=== PATIENT | female | born 1970 | race Two or more races ===

== ENCOUNTER 2019-04-13 08:50 | Outpatient (CLI) | payer OTHER ==
[2019-04-13] MEDS ORDERED: ALBU8.5H8 INH (09:26)
[2019-04-13] MEDS ORDERED: METF500T17 PO (09:26)
[2019-04-13 10:07] LABS: ALBUMIN 3.9 g/dL (3.4-5.0); ANION GAP 7 mmol/L (5-15); CALCIUM 9.1 mg/dL (8.5-10.1); CHLORIDE 110 mmol/L (98-107)
[2019-04-13 10:11] LABS: ALANINE AMINOTRANSFERASE 39 U/L (12-78); ALKALINE PHOSPHATASE 112 U/L (45-117); BILIRUBIN,TOTAL 0.6 mg/dL (0.2-1.0); CREATININE 0.86 mg/dL (0.55-1.02); TOTAL PROTEIN 8.3 g/dL (6.4-8.2)
== END 2019-04-13 23:59 | disposition home or self-care (01) ==
LOC: STAR 08:50
PROVIDERS: ATTEND Obstetrics & Gynecology Female Pelvic Medicine and Reconstructive Surgery
DX: Z01.818 Encounter for other preprocedural examination (principal); D21.9 Benign neoplasm of connective and other soft tissue, unspecified; N85.2 Hypertrophy of uterus; Z87.891 Personal history of nicotine dependence; Z91.018 Allergy to other foods; Z91.048 Other nonmedicinal substance allergy status
CPT/HCPCS: 36415; 80053; 93005

== ENCOUNTER 2019-05-07 10:40 | Day surgery (SDC) | payer OTHER ==
[~2019-05-07] VITALS: Ht 160 cm; Wt 105.9 kg
[~2019-05-07 10:40] MED LIST: ALBU8.5H8 INH; METF500T17 PO
[2019-05-07] MEDS ORDERED: MIDAZOLAM 1 MG/ML, 2ML ONE (10:45)
[2019-05-07] MEDS ORDERED: FENTANYL PF 100 MCG/2ML ONE ×2 (10:46→15:42)
[2019-05-07] MEDS ORDERED: ONDANSETRON 2MG/ML, 2ML ONE (10:46)
[2019-05-07] MEDS ORDERED: DEXAMETHASONE 4 MG/ML, 1ML ONE ×2 (10:46)
[2019-05-07] MEDS ORDERED: LIDOCAINE-MPF 2% ,5ML ONE (10:46)
[2019-05-07] MEDS ORDERED: ROCURONIUM 10MG/ML,5ML ONE ×2 (10:46→13:51)
[2019-05-07] MEDS ORDERED: PROPOFOL 10 MG/ML, 20ML ONE (10:46)
[2019-05-07] MEDS ORDERED: HYDROmorphone 2 MG/ML, 1ML IVPush PRN (11:00)
[2019-05-07] MEDS ORDERED: LORazepam 2 MG/ML, 1ML IVPush PRN (11:00)
[2019-05-07] MEDS ORDERED: ONDANSETRON 2MG/ML, 2ML IV PRN (11:00)
[2019-05-07] MEDS ORDERED: hydrALAzine 20 MG/ML, 1ML IV PRN (11:00)
[2019-05-07] MEDS ORDERED: FENTANYL PF 100 MCG/2ML IV PRN (11:00)
[2019-05-07] MEDS ORDERED: LABETALOL 5MG/ML, 20ML IV PRN (11:00)
[2019-05-07] MEDS ORDERED: OXYcodone 5 MG/5 ML ORAL.SOL UDC PO PRN (11:00)
[2019-05-07] MEDS ORDERED: DIPHENHYDRAMINE 50 MG/ML, 1ML IVPush PRN (11:00)
[2019-05-07] MEDS ORDERED: MEPERIDINE/PF 25MG/ML,1ML IVPush PRN (11:00)
[2019-05-07] MEDS ORDERED: ALBUTEROL/IPRATROPIUM 2.5MG/0.5MG, 3 ML NPPB PRN (11:00)
[2019-05-07 11:31] VITALS: BP 129/83
[2019-05-07 11:34] LABS: HCG UR SG 1.026 (1.003-1.030)
[2019-05-07] MEDS: LACTATED RINGERS 1,000 ML IV SCH ×5 (11:59→22:56)
[2019-05-07] MEDS ORDERED: GABAPENTIN 300 MG CAPSULE PO ONE (12:00)
[2019-05-07] MEDS ORDERED: SCOPOLAMINE PATCH, 1.5MG PATCH.TD72 TD ONE (12:00)
[2019-05-07] MEDS ORDERED: ACETAMINOPHEN 500 MG TABLET PO ONE (12:00)
[2019-05-07] MEDS ORDERED: BUPIVACAINE 0.25% ONE (14:48)
[2019-05-07] MEDS ORDERED: INDIGO CARMINE 0.8%, 5ML ONE (14:48)
[2019-05-07] MEDS ORDERED: ONDANSETRON 2MG/ML, 2ML IVPush PRN (15:30)
[2019-05-07] MEDS ORDERED: PROMETHAZINE 25 MG SUPP PR ONE (15:30)
[2019-05-07] MEDS ORDERED: IBUPROFEN 600 MG TABLET PO PRN (15:30)
[2019-05-07] MEDS ORDERED: HYDROcodone/APAP 5/325 TABLET PO PRN (15:30)
[2019-05-07] MEDS ORDERED: OXYcodone 5 MG/5 ML ORAL.SOL UDC ONE (15:42)
[2019-05-07] MEDS ORDERED: PROMETHAZINE 25 MG/ML, 1ML ONE (15:44)
[2019-05-07] MEDS ORDERED: PROMETHAZINE 25 MG/ML, 1ML IV PRN (16:00)
[2019-05-07] MEDS ORDERED: SUGAMMADEX 200 MG/2 ML IVPush ONE (17:32)
[2019-05-07 18:21] VITALS: BP 132/86
== END 2019-05-07 23:35 | disposition home or self-care (01) ==
LOC: OUT 10:40 → 2NW 18:15 → UNDOADMIN 18:15 → UNDODISIN 23:35
PROVIDERS: ATTEND Obstetrics & Gynecology Female Pelvic Medicine and Reconstructive Surgery
DX: D25.9 Leiomyoma of uterus, unspecified (principal); N72 Inflammatory disease of cervix uteri; N73.6 Female pelvic peritoneal adhesions (postinfective); N39.3 Stress incontinence (female) (male); R10.2 Pelvic and perineal pain; E11.9 Type 2 diabetes mellitus without complications; J45.909 Unspecified asthma, uncomplicated; F32.9 Major depressive disorder, single episode, unspecified; E66.01 Morbid (severe) obesity due to excess calories; Z79.84 Long term (current) use of oral hypoglycemic drugs; Z79.899 Other long term (current) drug therapy; Z88.8 Allergy status to other drugs, medicaments and biological substances
CPT/HCPCS: 58554; 81025; 82962; 88307; J1100; J2250; J2405; J2550; J2704; J3010; J3490; J7120; S2900; G0378